=== PATIENT | male | born 1955 | race Caucasian/White ===

== ENCOUNTER 2025-02-19 08:13 | Emergency (ER) | payer MEDICARE, BC ==
[~2025-02-19] VITALS: Ht 180.3 cm; Wt 87.1 kg
[2025-02-19 08:22] VITALS: TEMP 98.3
[2025-02-19 09:15] VITALS: BP 129/94; O2SAT 96
== END 2025-02-19 09:15 | disposition home or self-care (01) ==
LOC: ER 08:29
DX: T46.5X1A Poisoning by other antihypertensive drugs, accidental (unintentional), initial encounter (principal); I10 Essential (primary) hypertension; Y92.89 Other specified places as the place of occurrence of the external cause